=== PATIENT | male | born 1975 | race Caucasian/White ===

== ENCOUNTER 2017-07-09 12:27 | Emergency (ER) | payer SELFPAY ==
[~2017-07-09] VITALS: Ht 177.8 cm; Wt 115.2 kg
[2017-07-09 12:40] VITALS: BP 138/83
--- NOTE | 2017-07-09 14:32 | NUR ---
PATIENT CALLED FROM LOBBY NO ANSWER PATIENT IS LWBS.
== END 2017-07-09 14:23 | disposition left against medical advice (07) ==
LOC: MED 12:27
DX: R21 Rash and other nonspecific skin eruption (principal); Z53.21 Procedure and treatment not carried out due to patient leaving prior to being seen by health care provider
CPT/HCPCS: 82948

== ENCOUNTER 2018-10-05 18:08 | Emergency (ER) | payer SELFPAY ==
[~2018-10-05] VITALS: Ht 180.3 cm; Wt 127.0 kg
[2018-10-05 18:15] VITALS: BP 162/101
--- NOTE | 2018-10-05 18:15 | NUR ---
PT TRIAGED AND SENT TO ER LOBBY
--- NOTE | 2018-10-05 18:45 | NUR ---
PT AMB TO ER BED 4
--- NOTE | 2018-10-05 18:57 | NUR ---
PT BIB SELF TO THE ED WITH THE CHIEF C/O BUG BITE X TODAY. PT HAS MULTIPLE REDNESS WITH STING [place] ON HIS BACK: HARD AND WARM TO TOUCH, TENDERNESS PRESENT. REPORTS NAUSEA AT THIS TIME. NO VOMITING. DENIES SWOLLING LIPS OR MOUTH. NO SOB OR DIFFICULTY BREATHING NOTED. SPO2 98% IN ROOM AIR. TEMPERATURE 99.9 DEGREE F NOW. STATES PAIN OF 10/10 AT THIS TIME. VSS . ER AWARE.
--- NOTE | 2018-10-05 19:09 | NUR ---
REPORT GIVEN TO SPORTS DIRECTOR RN FOR CONTINUITY OF CARE.
--- NOTE | 2018-10-05 19:10 | NUR ---
RECIEVED REPORT FROM [facility] FOR CONTINUED CARE.
--- NOTE | 2018-10-05 19:42 | NUR ---
DR SAMAYOA AT BEDSIDE.
[2018-10-05] MEDS ORDERED: NACL 0.9% 1,000 ML IV ONE (20:00)
[2018-10-05] MEDS ORDERED: CLINDAMYCIN 900 MG in DEXTROSE 5% 100 ML IV ONE (20:00)
[2018-10-05] MEDS ORDERED: LORazepam 2 MG/ML VIAL IVP ONE (20:00)
[2018-10-05] MEDS ORDERED: fentaNYL 0.05 MG/ML VIAL IVP ONE (20:00)
[2018-10-05] MEDS ORDERED: CLINDAMYCIN 900 MG/6 ML VIAL IV ONE (20:17)
--- NOTE | 2018-10-05 20:32 | NUR ---
PATIENT IV STARTED AND MEDICATIONS GIVEN ORDERED. PATIENT SPO2 DROPPED TO BETWEEN 88-90%. DR SAMAYOA MADE AWARE, PATIENT PLACED ON 2L NC PER DR SAMAYOA.
[2018-10-05 20:41] LABS: ANION GAP 10.8 (8-16); CARBON DIOXIDE 28.1 mmol/L (21-32); POTASSIUM 3.9 mmol/L (3.5-5.1)
[2018-10-05 20:46] LABS: ALBUMIN 3.3 g/dL (3.4-5.0); TOTAL BILIRUBIN 0.7 mg/dL (0.0-1.0)
[2018-10-05 21:14] LABS: BASOPHILS # (AUTO) 0.1 K/uL (0.00-0.22); BASOPHILS % (AUTO) 0.5 % (0.0-2.0); EOSINOPHILS # (AUTO) 0.2 K/uL (0-0.4); EOSINOPHILS % (AUTO) 1.3 % (0.0-4.0); HEMATOCRIT 45.4 % (36-52); LYMPHOCYTES # (AUTO) 2.4 K/uL (2.0-11.5); LYMPHOCYTES % (AUTO) 18.5 % (20.5-51.1); MEAN CORPUSCULAR HEMOGLOBIN 27 pg (27-31); MEAN CORPUSCULAR HGB CONC 33 g/dL (33-37); MEAN CORPUSCULAR VOLUME 80.3 fL (80-94); MONOCYTES # (AUTO) 0.8 K/uL (0.8-1.0); MONOCYTES % (AUTO) 6.5 % (1.7-9.3); NEUTROPHILS # (AUTO) 9.5 K/uL (1.8-7.7); NEUTROPHILS % (AUTO) 73.2 % (42.2-75.2); PLATELET COUNT (AUTO) 188 K/uL (140-450); RED BLOOD CELL COUNT(AUTO) 5.66 MIL/uL (4.20-6.10); RED CELL DISTRIBUTION WIDTH 13.2 % (11.6-13.7); WHITE BLOOD COUNT (AUTO) 12.9 K/uL (4.8-10.8)
--- NOTE | 2018-10-05 22:05 | NUR ---
PATIENT SLEEPING IN BED. ABLE TO WAKE UP WITHOUT DIFFICULTY.
[2018-10-06 00:15] VITALS: BP 121/78
--- NOTE | 2018-10-06 00:15 | NUR ---
Patient discharged with v/s stable. Written and verbal after care instructions given and explained. Patient alert, oriented and verbalized understanding of instructions. Ambulatory with steady gait. All questions addressed prior to discharge. ID band removed. Patient advised to follow up with PMD. Rx of BACTRIM, XANAX, TRAMADOL, AND MOTRIN given. Patient educated on indication of medication including possible reaction and side effects. Opportunity to ask questions provided and answered.
== END 2018-10-06 00:15 | disposition home or self-care (01) ==
LOC: MED 18:08
DX: M54.6 Pain in thoracic spine (principal); R10.9 Unspecified abdominal pain; E11.9 Type 2 diabetes mellitus without complications; I10 Essential (primary) hypertension; Z88.8 Allergy status to other drugs, medicaments and biological substances; W57.XXXA Bitten or stung by nonvenomous insect and other nonvenomous arthropods, initial encounter; Y93.89 Activity, other specified; Y92.89 Other specified places as the place of occurrence of the external cause; Y99.8 Other external cause status
CPT/HCPCS: 36415; 80053; 85025; 87040; 96365; 96375; 99283; J2060; J3010; J3490; J7030

== ENCOUNTER 2018-10-09 22:36 | Emergency (ER) | payer SELFPAY ==
[~2018-10-09] VITALS: Ht 180.3 cm; Wt 127.0 kg
[2018-10-09 22:42] VITALS: BP 146/83
--- NOTE | 2018-10-09 22:45 | NUR ---
TO LOBBY A/WBED, NICK MUÑOZ ERMD NOTED
--- NOTE | 2018-10-09 22:50 | NUR ---
PT AMBULATED TO BED 12
--- NOTE | 2018-10-09 23:50 | NUR ---
PT IS A 39 Y/O MALE WHO PRESENTS TO THE ED C/O BACK PAIN. PER PT WAS SEEN IN ED X1 WEEK AND GIVEN RX OF BACTRIM FOR RASH ON BACK. PT STATES THERE IS NO RELIEF. PT REPORTS 10/10 ACHING BACK PAIN, NOTED REDNESS, WARMTH ON UPPER BACK. PT DENIES CP, SOB, N/V/D. PT AWAKE AND ALERT, RR EVEN/UNLABORED. PT REPOSITIONED FOR COMFORT, BED IN LOWEST POSITION. ER MD DR. GORDON NOTIFIED. WILL CONTINUE TO MONITOR. PMH--DM
[2018-10-09] MEDS ORDERED: MORPHINE SULFATE 4 MG/ML SYR IVP ONE (23:55)
[2018-10-10 00:23] LABS: BASOPHILS # (AUTO) 0.1 K/uL (0.00-0.22); MEAN CORPUSCULAR VOLUME 81.1 fL (80-94)
[2018-10-10 00:31] LABS: BASOPHILS % (AUTO) 0.9 % (0.0-2.0); EOSINOPHILS # (AUTO) 0.2 K/uL (0-0.4); EOSINOPHILS % (AUTO) 2.2 % (0.0-4.0); HEMOGLOBIN 13.6 g/dL (12.0-18.0); LYMPHOCYTES % (AUTO) 20.1 % (20.5-51.1); MEAN CORPUSCULAR HEMOGLOBIN 27 pg (27-31); MEAN CORPUSCULAR HGB CONC 33 g/dL (33-37); MONOCYTES # (AUTO) 0.7 K/uL (0.8-1.0); NEUTROPHILS % (AUTO) 69.8 % (42.2-75.2); PLATELET COUNT (AUTO) 205 K/uL (140-450); RED BLOOD CELL COUNT(AUTO) 5.05 MIL/uL (4.20-6.10)
[2018-10-10 00:32] LABS: ANION GAP 13.1 (8-16); CARBON DIOXIDE 28.4 mmol/L (21-32); CREATININE 1.1 mg/dL (0.7-1.3); POTASSIUM 4.5 mmol/L (3.5-5.1)
[2018-10-10 00:38] LABS: ALBUMIN 3.2 g/dL (3.4-5.0); TOTAL BILIRUBIN 0.4 mg/dL (0.0-1.0)
[2018-10-10 01:02] VITALS: BP 148/81
--- NOTE | 2018-10-10 01:02 | NUR ---
Patient discharged with v/s stable. Written and verbal after care instructions given and explained. Patient alert, oriented and verbalized understanding of instructions. Ambulatory with steady gait. All questions addressed prior to discharge. ID band removed. Patient advised to follow up with PMD. Rx of KEFLEX 500MG AND MOTRIN 800MG given. Patient educated on indication of medication including possible reaction and side effects. Opportunity to ask questions provided and answered.
== END 2018-10-10 01:02 | disposition home or self-care (01) ==
LOC: MED 22:36
DX: L03.312 Cellulitis of back [any part except buttock and flank] (principal); E11.9 Type 2 diabetes mellitus without complications; I10 Essential (primary) hypertension; Z88.6 Allergy status to analgesic agent; Z88.8 Allergy status to other drugs, medicaments and biological substances
CPT/HCPCS: 36415; 80053; 82550; 83605; 85025; 87040; 96374; 99283; J2270

== ENCOUNTER 2019-05-09 23:17 | Emergency (ER) | payer SELFPAY ==
[~2019-05-09] VITALS: Ht 177.8 cm; Wt 127.0 kg
[2019-05-09 23:25] VITALS: BP 137/90
--- NOTE | 2019-05-09 23:28 | NUR ---
TO LOBBY A/W BED AMBULATORY
--- NOTE | 2019-05-10 00:10 | NUR ---
AMBULATED TO ER BED 2
--- NOTE | 2019-05-10 00:10 | NUR ---
PT CAME IN TO ER WITH C/O OF PAIN TO THE BACK OF HEAD X 2 DAYS. PT STATES THAT HE HAD 2 SYNCOPE EPISODES AND FELL AND HIT HIS HEAD. PT IS A/OX4. PT HAS HX OF HTN AND DM. PT STATES HE IS NON COMPLIANT WIH TAKING MEDICATION. PT PAIN LEVEL IS 10/10 AT THIS TIME. ERMD MADE AWARE OF STATUS. SAFETY MEASURES IMPLEMENTED.
[2019-05-10] MEDS ORDERED: NACL 0.9% 1,000 ML IV ONE (00:29)
--- NOTE | 2019-05-10 00:53 | NUR ---
PT WENT TO CT BY WHEEL CHAIR
[2019-05-10 00:56] LABS: HEMOGLOBIN 15.5 g/dL (12.0-18.0)
[2019-05-10 00:59] LABS: BASOPHILS # (AUTO) 0.1 K/uL (0.00-0.22); BASOPHILS % (AUTO) 1.1 % (0.0-2.0); EOSINOPHILS # (AUTO) 0.2 K/uL (0-0.4); EOSINOPHILS % (AUTO) 2.5 % (0.0-4.0); LYMPHOCYTES % (AUTO) 34.3 % (20.5-51.1); MEAN CORPUSCULAR HEMOGLOBIN 28 pg (27-31); MEAN CORPUSCULAR HGB CONC 34 g/dL (33-37); MEAN CORPUSCULAR VOLUME 82.1 fL (80-94); MONOCYTES # (AUTO) 0.7 K/uL (0.8-1.0); MONOCYTES % (AUTO) 8.6 % (1.7-9.3); NEUTROPHILS # (AUTO) 4.6 K/uL (1.8-7.7); NEUTROPHILS % (AUTO) 53.5 % (42.2-75.2); PLATELET COUNT (AUTO) 195 K/uL (140-450); RED CELL DISTRIBUTION WIDTH 13.3 % (11.6-13.7); WHITE BLOOD COUNT (AUTO) 8.6 K/uL (4.8-10.8)
--- NOTE | 2019-05-10 01:06 | NUR ---
PT RETURNED FROM CT VIA WC.
[2019-05-10 01:07] LABS: CREATININE 0.9 mg/dL (0.7-1.3)
[2019-05-10 01:13] LABS: ALBUMIN 3.5 g/dL (3.4-5.0); TOTAL BILIRUBIN 0.3 mg/dL (0.0-1.0)
[2019-05-10] MEDS ORDERED: KETOROLAC 30 MG/ML VIAL IVP ONE (01:20)
--- NOTE | 2019-05-10 01:28 | NUR ---
PT TAKEN TO RR VIA WC FOR URINE COLLECTION.
--- NOTE | 2019-05-10 01:35 | NUR ---
URINE SAMPLE COLLECTED; PICKED UP BY LAB.
--- NOTE | 2019-05-10 01:36 | NUR ---
PT MEDICATED WITH 30 MG IVP TORADOL FOR 03/11 HEADACHE. WILL REASSESS.
[2019-05-10 01:58] LABS: BARBITURATE, URINE NEGATIVE ng/ml (NEG <=200); BENZODIAZEPINE, URINE NEGATIVE ng/mL (NEG <=200); CANNABINOID, URINE NEGATIVE ng/mL (NEG <=50); COCAINE, URINE NEGATIVE ng/mL (NEG <=300); OPIATE, URINE NEGATIVE ng/mL (NEG <=2000); PHENCYCLIDINE SCREEN,URINE NEGATIVE ng/mL (NEG <=25)
[2019-05-10 02:34] VITALS: BP 126/75
--- NOTE | 2019-05-10 02:34 | NUR ---
Patient discharged with v/s stable. Written and verbal after care instructions given and explained. Patient alert, oriented and verbalized understanding of instructions. Ambulatory with steady gait. All questions addressed prior to discharge. ID band removed. Patient advised to follow up with PMD. Rx of Metformin given. Patient educated on indication of medication including possible reaction and side effects. Opportunity to ask questions provided and answered.
== END 2019-05-10 02:34 | disposition home or self-care (01) ==
LOC: MED 23:17
DX: F15.10 Other stimulant abuse, uncomplicated (principal); E11.65 Type 2 diabetes mellitus with hyperglycemia; F17.210 Nicotine dependence, cigarettes, uncomplicated; I10 Essential (primary) hypertension; Z79.899 Other long term (current) drug therapy
CPT/HCPCS: 36415; 70450; 80053; 80305; 83690; 85025; 96361; 96374; 99284; J1885; J7030